=== PATIENT | female | born 1960 | race Caucasian/White ===

== ENCOUNTER 2023-11-11 14:05 | Emergency (ER) | payer MEDICARE, MEDICAID ==
[~2023-11-11] VITALS: Ht 152.4 cm; Wt 58.1 kg
[2023-11-11] MEDS ORDERED: ROSU5TAB PO (14:30)
[2023-11-11] MEDS ORDERED: DEXL60CA3 PO (14:30)
[2023-11-11] MEDS ORDERED: METO50TA16 PO (14:30)
[2023-11-11] MEDS ORDERED: EVOL420W2 SUBCUT (14:30)
[2023-11-11] MEDS ORDERED: ASPI81TA31 PO (14:30)
[2023-11-11] MEDS ORDERED: FOLI1TAB27 PO (14:30)
[2023-11-11 15:26] LABS: BASOPHILS # (AUTO) 0.1 K/UL (0.0-0.2); BASOPHILS % (AUTO) 1.8 % (0.0-2.0); EOSINOPHILS % (AUTO) 0.7 % (0.0-7.0); HEMATOCRIT 28.3 % (31.2-41.9); HEMOGLOBIN 9.5 g/dL (10.9-14.3); LYMPHOCYTES # (AUTO) 1.9 K/uL (0.8-4.8); LYMPHOCYTES % (AUTO) 47.7 % (20.5-51.5); MEAN CORPUSCULAR HEMOGLOBIN 31.1 uug (24.7-32.8); MEAN CORPUSCULAR HGB CONC 34 g/dL (32.3-35.6); MEAN CORPUSCULAR VOLUME 92.1 fL (75.5-95.3); MONOCYTES % (AUTO) 25.9 % (0.0-11.0); NEUTROPHILS % (AUTO) 23.9 % (38.5-71.5); PLATELET COUNT (AUTO) 104 K/uL (179-408); RED BLOOD CELL COUNT(AUTO) 3.07 MIL/uL (3.63-4.92); RED CELL DISTRIBUTION WIDTH 14.4 % (12.3-17.7)
[2023-11-11 15:49] LABS: DIFFERENTIAL COMMENT 1
[2023-11-11 16:19] LABS: CALCIUM 8.9 mg/dL (8.5-10.1); CARBON DIOXIDE 26 mmol/L (21-32); CHLORIDE 103 mmol/L (98-107); CREATININE 0.5 mg/dL (0.6-1.3); GLUCOSE 99 mg/dL (74-106); NT-PRO BNP 598 pg/mL (0-125); POTASSIUM 4.5 mmol/L (3.5-5.1); SODIUM SERUM 137 mmol/L (136-145); UREA NITROGEN, BLOOD 15 mg/dL (7-18)
[2023-11-11 16:32] LABS: BAND % (MANUAL) 5 % (0-10); LYMPHOCYTES % (MANUAL) 39 % (20-40); MONOCYTES % (MANUAL) 25 % (2-10); NEUTROPHILS % (MANUAL) 26 % (42-75); PLATELET ESTIMATE DECREASED
[2023-11-11 16:33] LABS: ANISOCYTOSIS 1+
[2023-11-11] MEDS ORDERED: AZIT250T13 PO (16:35)
[2023-11-11] MEDS ORDERED: BENZ-13 PO (16:35)
[2023-11-11 16:48] VITALS: BP 127/68; O2SAT 98
== END 2023-11-11 16:45 | disposition home or self-care (01) ==
LOC: ER 14:05
DX: J06.9 Acute upper respiratory infection, unspecified (principal); R05.9 Cough, unspecified; R09.81 Nasal congestion; I10 Essential (primary) hypertension; E78.5 Hyperlipidemia, unspecified; D64.9 Anemia, unspecified; D69.6 Thrombocytopenia, unspecified; Z79.82 Long term (current) use of aspirin; Z20.822 Contact with and (suspected) exposure to COVID-19; Z98.890 Other specified postprocedural states; Z79.899 Other long term (current) drug therapy; Z60.2 Problems related to living alone; Z88.1 Allergy status to other antibiotic agents
CPT/HCPCS: 36415; 70030-TC; 71045; 84484; 85025; 93005; A4606; A4663